=== PATIENT | male | born 2000 | race Caucasian/White ===

== ENCOUNTER 2022-05-19 18:12 | Emergency (ER) | payer OTHER ==
[2022-05-19] MEDS ORDERED: Morphine 2 MG/ML SYRINGE IVPUSH ONE ×2 (18:42→21:01)
[2022-05-19] MEDS: Sodium Chloride 0.9% 10 ML Syringe FLUSH PRN ×2 (19:01→19:05)
[2022-05-19] MEDS ORDERED: Take Home: Acetaminophen/HYDROcodone 325-10 MG, 5 Tab Pack PO ONE (21:02)
== END 2022-05-19 22:26 | disposition home or self-care (01) ==
LOC: LL.ED 18:12
DX: S92.354A Nondisplaced fracture of fifth metatarsal bone, right foot, initial encounter for closed fracture (principal); S52.502A Unspecified fracture of the lower end of left radius, initial encounter for closed fracture; S92.424A Nondisplaced fracture of distal phalanx of right great toe, initial encounter for closed fracture; S63.075A Dislocation of distal end of left ulna, initial encounter; S01.111A Laceration without foreign body of right eyelid and periocular area, initial encounter; E66.9 Obesity, unspecified; Z68.30 Body mass index [BMI] 30.0-30.9, adult; Z87.891 Personal history of nicotine dependence; V86.52XA Driver of snowmobile injured in nontraffic accident, initial encounter; Y92.410 Unspecified street and highway as the place of occurrence of the external cause
CPT/HCPCS: 29125; 73110-LT; 73610-RT; 73620-RT; 96374; 96376; 99283-25; A9270-GY; J2270; J3490